=== PATIENT | female | born 1965 | race Caucasian/White ===

== ENCOUNTER 2017-04-12 12:16 | Inpatient (IN) | payer MEDICARE ==
[2017-04-12] VITALS (29 sets, daily range): BP systolic 87–162; BP diastolic 43–113
[~2017-04-12] VITALS: Ht 167.6 cm; Wt 87.3 kg
--- NOTE | 2017-04-12 12:30 | NUR ---
ARRIVAL PATIENT ARRIVED TO ED1 VIA GURNEY BY [facility],C/O OF COUGH AND BLOOD IN SPUTUM FOR THE PAST SEVERAL DAYS, WAS RECENTLY SEEN BY A DOCTOR IN ANOTHER STATE AND GIVEN BACTRIM FOR AN URI, TODAY PATIENT HAS NOTICED MORE BLOOD IN HER SPUTUM, CALLED EMS TO BRING TO ED FOR FURTHER EVAL BY EDP.
--- NOTE | 2017-04-12 13:11 | DIREP ---
PROCEDURE:CHEST 1 VIEW COMPARISON:None. INDICATIONS:Cough FINDINGS: LUNGS/PLEURA:Infiltrates are seen in both mid lung gomes and in both lung bases. The infiltrates in both mid lung gomes have a nodular or masslike appearance. VASCULATURE:Normal. Unremarkable pulmonary vasculature. CARDIAC:Normal. No cardiac silhouette abnormality or cardiomegaly. MEDIASTINUM:Normal. No visible mass or adenopathy. BONES:Normal. No fracture or visible bony lesion. OTHER:Negative. CONCLUSION:There are bilateral infiltrates in both mid lung gomes in both lung bases most consistent with bilateral pneumonia. However, the infiltrates in both mid lung gomes have a nodular or masslike appearance and recommend follow-up study to exclude possible pulmonary masses or malignancy. Dictated by: Miguel Rosen M.D. on 04/12/2017 at 01:11 PM
[2017-04-12 13:12] LABS: BASOPHIL % 0.4 % (0.0-0.2); LYMPHOCYTES # 0.3 10^3/uL (1.0-4.8); LYMPHOCYTES % 11.5 % (24.0-44.0); MEAN CELL HGB 29.1 pg (26-34); MEAN CELL HGB CONCENTRATION 32.3 g/dL (33-37); MEAN CORP VOLUME 89.9 fL (78-100); MEAN PLATELET VOLUME 11.5 fL (7.8-11.0); MONOCYTES # 0.1 10^3/uL (0.3-0.8); MONOCYTES % 3.6 % (5.0-12.0); NEUTROPHIL # 2.1 10^3/uL (1.8-7.7); NEUTROPHILS % 83.7 % (41.0-85.0); RED CELL DISTRIBUTION WIDTH 14.6 % (11.5-14.5); WHITE BLOOD CELL 2.5 10^3/uL (4.5-11.0)
[2017-04-12 13:12] LABS: ABG PH 7.495 (7.350-7.450); BE(B) 0.9 mmol/L (-2.0-2.0); HCO3act 23.4 mmol/L (22.0-26.0); pO2 35.1 mmHg (75.0-100.0)
[2017-04-12] MEDS ORDERED: NS 1000ML 1,000 ML IV STA ×2 (13:20→15:12)
[2017-04-12] MEDS ORDERED: LEVAQUIN 150 ML IV STA (13:20)
--- NOTE | 2017-04-12 13:20 | ER.PDOC ---
General Chief Complaint: Dyspnea/Respdistress Stated Complaint: COUGHING UP BLOOD Time seen by MD: 13:14 Source: patient Exam Limitations: no limitations History of Present Illness Initial Comments Coughing blood for 1 week Timing/Duration: gradual Severity: moderate Associated Symptoms: cough, mild SOB Allergies: Coded Allergies: Penicillins (Verified Allergy, Intermediate, 04/02/13) Home Meds Reported Medications Amphet Asp/Amphet/D-Amphet (ADDERALL XR 30 MG CAPSULE) 30 Mg Cap.er.24h, 1 CAP PO DAILY, #30 CAP 04/12/17 Sertraline Hcl (ZOLOFT) 100 Mg Tablet, 1 TAB PO DAILY, #30 TAB 2 Refills 04/12/17 Constitutional: no symptoms reported EENTM: no symptoms reported Respiratory: see HPI Cardiovascular: no symptoms reported Gastrointestinal: no symptoms reported All Other Systems: Reviewed and Negative Past Medical History Medical History: no pertinent history Surgical History: back, cholecystectomy, LMP (females 10-50): 04/08/17 Social History Smoking: cigarettes, greater than 1 pack/day Alcohol Use: none Drug Use: none Physical Exam General Appearance: alert, no distress Nose: nose nml Neck: nml inspection, supple Respiratory: no resp.distress, rales Abdomen: non-tender, no organomegaly CVS: reg rate & rhythm, heart sounds nml Skin: color nml, no rash, warm/dry Extremities: non-tender, nml ROM, no pedal edema NEURO/PSYCH: oriented x 3, CN's nml as tested, motor nml, sensation nml, mood/ affect nml Results/Orders Results/Orders Laboratory Tests Test 04/12/17 12:29 04/12/17 12:46 Blood Gas Sample Site LEFT BRACHIAL ARTRY Blood Gas pH 7.495 (7.350-7.450) Blood Gas PCO2 31.0 mmHg (35.0-45.0) Blood Gas PO2 35.1 mmHg (75.0-100.0) Blood Gas HCO3 23.4 mmol/L (22.0-26.0) Blood Gas Base Excess 0.9 mmol/L (-2.0-2.0) Keith Test N/A Arterial Blood Oxygen Saturation 70.7 % (95-) Deoxyhemoglobin 28.8 % (0.2-0.6) Carboxyhemoglobin 1.1 % (0.5-1.5) Methemoglobin 0.5 % (0.2-0.6) Total Hemoglobin 13.5 % (13.5-17.5) Total Oxygen Concentration 13.2 % (13.5-17.5) Lactic Acid (Blood Gas) 1.5 MMOL/L (0.5-1.0) FiO2 21 % (20-101) Bicarbonate 24.3 mmol/L (23-27) White Blood Count 2.5 10^3/uL (4.5-11.0) Red Blood Count 4.47 10^6/uL (4.00-5.20) Hemoglobin 13.0 g/dL (12.0-15.0) Hematocrit 40.2 % (36.0-46.0) Mean Corpuscular Volume 89.9 fL (78-100) Mean Corpuscular Hemoglobin 29.1 pg (26-34) Mean Corpuscular Hemoglobin Concent 32.3 g/dL (33-37) Red Cell Distribution Width 14.6 % (11.5-14.5) Platelet Count 96 10^3/uL (150-400) Mean Platelet Volume 11.5 fL (7.8-11.0) Neutrophils (%) (Auto) 83.7 % (41.0-85.0) Lymphocytes (%) (Auto) 11.5 % (24.0-44.0) Monocytes (%) (Auto) 3.6 % (5.0-12.0) Neutrophils # (Auto) 2.1 10^3/uL (1.8-7.7) Lymphocytes # (Auto) 0.3 10^3/uL (1.0-4.8) Monocytes # (Auto) 0.1 10^3/uL (0.3-0.8) Absolute Immature Granulocyte (auto 0.02 10^3 u/L (0-2) Eosinophils % 0.0 % (0.0-5.0) Basophils % 0.4 % (0.0-0.2) Basophils # 0.0 10^3/uL (0.0-0.1) Eosinophil Count 0.0 10^3/uL (0.0-0.2) Prothrombin Time 10.4 SEC (9.8-11.9) Prothrombin Time INR (Non-Therap) 1.0 Activated Partial Thromboplast Time 42.1 SEC (24.67-30.72) D-Dimer 0.69 mg/L (0.19-0.49) Sodium Level 138 mmol/L (132-145) Potassium Level 3.4 mmol/L (3.6-5.2) Chloride Level 101.0 mmol/L (96-109) Carbon Dioxide Level 25.6 mmol/L (20.0-32) Anion Gap 14.8 Blood Urea Nitrogen 13 mg/dL (7-18) Creatinine 1.14 mg/dL (0.59-1.40) Estimated GFR () 61.0 (>/=60) BUN/Creatinine Ratio 11.0 Glucose Level 126 mg/dL (70-110) Calcium Level 7.9 mg/dL (8.4-10.5) Total Bilirubin 0.3 mg/dL (0.2-1.0) Aspartate Amino Transf (AST/SGOT) 63 U/L (0-35) Alanine Aminotransferase (ALT/SGPT) 27 U/L (12-78) Alkaline Phosphatase 79 U/L (50-136) Total Creatine Kinase 268 U/L (26-192) Creatine Kinase MB 1.1 ng/mL (0.5-3.6) Troponin I < 0.02 ng/mL (0.00-0.05) Pro-B-Type Natriuretic Peptide 236 pg/mL (0-125) Total Protein 6.4 g/dL (6.4-8.2) Albumin 2.9 g/dL (3.4-5.0) Globulin 3.5 Percent Immature Gran (Cell Imm) 0.80 % (0.00-0.50) Administered Medications Medications (Trade) Dose Ordered Sig/Katie Route PRN Reason Start Time Stop Time Status Last Admin Dose Admin Sodium Chloride 1,000 ml @ 1,200 mls/hr Q50M STAT IV 04/12/17 13:20 04/12/17 14:09 DC 04/12/17 13:27 Levofloxacin/ Dextrose 150 ml @ 100 mls/hr STAT STAT IV 04/12/17 13:20 04/12/17 14:49 DC 04/12/17 13:59 Ondansetron HCl (Zofran) 4 mg STAT STAT IV 04/12/17 14:36 12/28/17 14:37 DC 04/12/17 14:37 EKG/XRAY/CT/US XRAY: chest (Bilateral Pneumonia) CT Comments: Pneumonia on CT chest, See full report Departure Time of Disposition: 15:03 Disposition: 09 ADMITTED INPATIENT Impression: Primary Impression: Acute respiratory failure Qualified Codes: J96.01 - Acute respiratory failure with hypoxia Additional Impressions: Sepsis Qualified Codes: A41.9 - Sepsis, unspecified organism Pneumonia Qualified Codes: J18.9 - Pneumonia, unspecified organism Condition: Critical Referrals: ELIZABETH AC MD (PCP) PRIMARY CARE PROVIDER Comments Admitted to Dr. Kitchen Duration or Time Spent with Pa: 60 mins Critical Care Note Total Time (mins): 60 RAISA ROTH MD Apr 12, 2017 13:20
[2017-04-12] MEDS ORDERED: NS 1000ML 1,000 ML ONE ×2 (13:22→15:09)
--- NOTE | 2017-04-12 13:23 | PCM.EKG ---
[facility] Test Date: 2017-04-12 Test Time: 13:22:32 Pat Name: DORINDA PEREZ Department: [id number] Room: ICU2 Gender: F Insurance Policy Issue Clerk: JESUS : 1965 Requested By: RAISA ROTH Order Number: [id number] Reading MD: Raisa ROTH Measurements Intervals [place] Rate: 85 P: 59 VT: 106 QRS: 46 QRSD: 62 T: 23 QT: 386 QTc: 459 Interpretive Statements Sinus rhythm with short VT Low voltage QRS Borderline ECG No previous ECG available for comparison Electronically Signed On 04-14-2017 7:57:07 CONTINUITY DIRECTOR by Raisa ROTH Please click the below link to view image of tracing.
[2017-04-12] MEDS ORDERED: LEVAQUIN 150 ML IV ONE (13:27)
[2017-04-12 13:28] LABS: ALANINE AMINOTRANSFERASE(ML) 27 U/L (12-78); ALKALINE PHOSPHATASE 79 U/L (50-136); ASPARTATE AMINO TRANSFERASE 63 U/L (0-35); CALCIUM 7.9 mg/dL (8.4-10.5); CARBON DIOXIDE 25.6 mmol/L (20.0-32); GLUCOSE 126 mg/dL (70-110)
[2017-04-12] MEDS ORDERED: SERT100T PO (13:28)
[2017-04-12] MEDS ORDERED: AMPH30CA6 PO (13:28)
--- NOTE | 2017-04-12 13:30 | NUR ---
SPUTUM PATIENT COUGHED BLOOD TINGED SPUTUM, DOCTOR GONZALEZ NOTIFIED. AWAITING TO GO TO CAT SCAN.
--- NOTE | 2017-04-12 13:41 | NUR ---
CAT SCAN PATIENT TO CAT SCAN WITH ALY FROM RADIOLOGY.
--- NOTE | 2017-04-12 13:42 | NUR ---
LAB CALLED LAB SPOKE WITH SHAE, LAB DID OBTAIN BLOOD CULTURES X2. DOCTOR GONZALEZ NOTIFIED.
--- NOTE | 2017-04-12 13:48 | NUR ---
CT PT BACK FROM CT
--- NOTE | 2017-04-12 14:13 | DIREP ---
PROCEDURE:CT CHEST WITH CONTRAST COMPARISON:CT, CT-ABDOMEN / PELVIS W CONTRAST, 04/02/2013, 02:53 AM. INDICATIONS:Cough productive of bloody sputum TECHNIQUE:Helical sections through the chest were performed from the lung apices through the diaphragms with IV contrast. Sagittal and coronal reconstructions are obtained from source images. FINDINGS: LUNGS:Diffuse airspace/ground-glass infiltrates are present scattered in both lungs. These are slightly more predominant in the lung bases. PLEURA:Normal. No mass or effusion. CARDIAC:Normal. No enlargement, pericardial thickening, or significant calcification. MEDIASTINUM:There are prominent mediastinal lymph nodes in both hilar regions and in the sub-carinal recess as well as about the arch. NAVEED:Normal. No mass or adenopathy. AORTA:Normal. No aneurysm. CHEST WALL:Normal. No mass or axillary adenopathy. LIMITED ABDOMEN:Normal. Limited images of the upper abdomen are unremarkable. BONES:Normal. No bony lesion or fracture. OTHER:Negative. CONCLUSION:Multifocal mixed airspace/ground-glass infiltrates worrisome for pneumonia. No evidence of pleural effusion. The prominent mediastinal lymph nodes may be reactive in nature. Follow-up CT imaging after appropriate therapy is recommended to document resolution Dictated by: Ashley Kelsey M.D. on 04/12/2017 at 01:54 PM
[2017-04-12] MEDS ORDERED: ZOFRAN ONE (14:31)
[2017-04-12] MEDS ORDERED: ZOFRAN IV STA (14:36)
--- NOTE | 2017-04-12 14:40 | NUR ---
DR ALBERT MOON MBA ON PHONE WITH DR PRICE
--- NOTE | 2017-04-12 15:06 | PRM.ACF1 ---
Date and Time Date and Time Time: 15:05 Admission Criteria Forms RESPIRATORY FAILURE GRG ( Place 'X' for any and all applicable criteria): Hospital admission is needed for appropriate care of the patient because of acute respiratory failure or insufficiency as indicated by 1 or more of the following (1)(2)(3)(4)(5)(6)(7)(8 ): [ ]I. Mechanical ventilation needed (acute invasive or noninvasive) [ ]II. Severe ventilation deficit as indicated by 1 or more of the following ( 9) [ ]a) Uncompensated Respiratory acidosis (pH < 7.35 and PaCO2 > 40 mmHg (5.3 kPa)) [ ]b) Airflow measurements < 25% of predicted (eg, PEFR < 100 L/min) [ ]c) FVC < 15 mL/kg of ideal body weight, or 50% decrease in vital capacity from baseline [ ]III. Noncardiac pulmonary edema not resolving with rapid emergency treatment (8) [x ]IV. Severe respiratory distress as indicated by 1 or more of the following: [ ]a) Severe tachypnea (respiratory rate greater than 30, greater than 45 for 6-month-old, greater than 60 for ) [ ]b) Severe hypoxemia (partial pressure of oxygen less than 50 mm Hg ( 6.7 kPa) on greater than 50% oxygen or partial pressure of oxygen to FIO2 ratio less than 200) [ ]c) Mental status deterioration from respiratory disease [ ]V. Airway obstruction or inadequate protection [A](10)(11) The original [employer] content created by [employer] has been revised. The portions of the content which have been revised are identified through the use of italic text, and [employer] has neither reviewed nor approved the modified material. All other unmodified content is copyright [employer]. Please see references footnoted in the original [employer] edition 2014 RAISA ROTH MD Apr 12, 2017 15:06
[2017-04-12] MEDS ORDERED: LANOLIN HYDROUS TP ONE (15:47)
--- NOTE | 2017-04-12 15:50 | NUR ---
GARCIA 16FR GARCIA CATH INSERTED USING STERILE TECHNIQUE. PATIENT TOLERATED WELL. GARCIA CATH TO GRAVITY. CLEAR YELLOW URINE NOTED. JAROD CARE DONE. GARCIA SECURED TO LEFT LEG WITH STATLOCK. PATIENT ON MENSES, PATIENT ASSISTED TO APPLY JAROD PAD. PATIENT LEFT LAYING IN BED WITH HOB ELEVATED 45 DEGREE. PATIENT ORIENTED TO BED, ROOM, AND CALL LIGHT.
[2017-04-12] MEDS ORDERED: ZOFRAN IV PRN (16:00)
[2017-04-12] MEDS ORDERED: VENTOLIN IH PRN (16:00)
[2017-04-12] MEDS ORDERED: TYLENOL ONE (16:11)
--- NOTE | 2017-04-12 16:40 | NUR ---
3RD NS BOLUS STARTED PER DR. PRICE'S VERBAL ORDER.
--- NOTE | 2017-04-12 16:45 | NUR ---
DR. PRICE AT BEDSIDE ASSESSING PATIENT AND DISCUSSING PLAN OF CARE.
[2017-04-12] MEDS: TYLENOL PO PRN ×2 (16:48→19:31)
[2017-04-12] MEDS: ROBITUSSIN AC PO PRN ×3 (16:49→23:55)
[2017-04-12] MEDS ORDERED: LEVAQUIN 150 ML IV SCH (17:00)
[2017-04-12 17:16] LABS: BILIRUBIN,URINE NEGATIVE (NEGATIVE); UROBILINOGEN,URINE NORMAL (NEGATIVE)
[2017-04-12 17:18] LABS: ANISOCYTOSIS 1+ (NEGATIVE); LYMPHOCYTE 12 % (25-36); MONOCYTE 5 % (3-9); OTHER CELL TYPE 1; SEGMENTED NEUTROPHILS 82 % (31-76)
[2017-04-12] MEDS: NS 1000ML 1,000 ML IV SCH (17:19)
[2017-04-12 17:23] LABS: APPEARANCE,URINE SLIGHTLY HAZY (CLEAR); UA COLOR YELLOW (YELLOW)
--- NOTE | 2017-04-12 17:50 | NUR ---
RT O2 SAT 85% TO 88%. PATIENT SWITCHED TO HICON MASK.
[2017-04-12] MEDS ORDERED: DUONEB 0.5 MG-3 MG/3 ML SOLN IH SCH (18:00)
--- NOTE | 2017-04-12 19:00 | NUR ---
RECEIVED PATIENT ON RESPIRATORY DISTRESS RR 44 BREATHS/MIN, 82% SPO2 ON HIGH CON MASK. INSTRUCTED PT TO DO DEEP BREATHING AND COUGHING EXERCISES. INCREASED HOB TO 50 DEGREES. CHEST PHYSIOTHERAPY DONE- BACK RUB, CLAPPING AND VIBRATION. SPO2 INCREASED BET TO 88-91%, RR DECREASED TO 28-34 BREATHS/MIN. HEART RATE REMAINED BET. 83-84 BPM. ASSUMED CARE. SEE ASSESSMENT.
[2017-04-12] MEDS: TAMIFLU PO SCH (19:31)
[2017-04-12] MEDS: XANAX PO PRN (19:31)
[2017-04-12] MEDS: DUONEB 0.5 MG-3 MG/3 ML SOLN IH SCH (20:11)
[2017-04-12] MEDS ORDERED: MORPHINE SULFATE ONE (20:42)
[2017-04-12] MEDS: MORPHINE SULFATE IV PRN (20:45)
--- NOTE | 2017-04-12 21:01 | NUR ---
NOTIFIED RESULTS FOR FLU A & B TO DR PRICE.
--- NOTE | 2017-04-12 23:26 | NUR ---
PT PLACED ON BIPAP RT AT BEDSIDE. PLACED PT ON BIPAP. SPO2 INCREASED TO 93-94% FROM LOW 70s. USE OF ACCESSORY MUSCLES, NASAL FLARING NOTED. RR 41-44 BREATHS/MIN Addendum: 04/13/17 at 0022 by Kat Ervin RN CORRECT TIME STAMP: [id number]
--- NOTE | 2017-04-12 23:26 | NUR ---
SPO2 79-81% NOTIFIED DR PRICE. RECEIVED ORDER TO PUT PATIENT ON BIPAP THEN A STAT ABG. RELAYED TO LEX GARCIA
--- NOTE | 2017-04-12 23:44 | NUR ---
MODERATE ANXIETY PT HYPERVENTILATING, VERBALIZED BEING SCARED. RR 40s, SPO2 78-81 ON COMFORT FLOW. RT AT BEDSIDE, PREPARING PATIENT ON BIPAP. NOTIFIED DR PRICE. RECEIVED ORDER FOR ATIVAN 1 MG Q6 PRN FOR ANXIETY. RBVO
[2017-04-12] MEDS: ATIVAN IV PRN (23:56)
[2017-04-13] VITALS (51 sets, daily range): BP systolic 89–198; BP diastolic 46–114
--- NOTE | 2017-04-13 00:15 | NUR ---
ABG RESULT RELAYED TO DR PRICE PH 7.38 CO2 35.4 PO2 61.5 HCO3 20.6 LACTIC 1.2 BIPAP SETTING 27/10, 85%
[2017-04-13 00:56] LABS: ABG PCO2 35.4 mmHg (35.0-45.0); ABG PH 7.383 (7.350-7.450); BE(B) -3.8 mmol/L (-2.0-2.0); HCO3act 20.6 mmol/L (22.0-26.0); pO2 61.5 mmHg (75.0-100.0)
[2017-04-13] MEDS: NS 1000ML 1,000 ML IV SCH (02:13)
[2017-04-13] MEDS: DUONEB 0.5 MG-3 MG/3 ML SOLN IH SCH ×3 (03:00→15:42)
--- NOTE | 2017-04-13 03:00 | NUR ---
PT REPEATEDLY REMOVES BIPAP MASK INSTRUCTED PT TO CONSERVE ENERGY, KEEP BIPAP MASK ON AT ALL TIMES. REITERATION PROVIDED. SPO2 FLUCTUATES BET. 80s- 93%
--- NOTE | 2017-04-13 03:00 | NUR ---
ANXIETY SEVERE ANXIETY NOTED. HR INCREASED TO 105 BPM, RR 55, SHALLOW LABORED BREATHING. PT STATED I AM VERY ANXIOUS RIGHT NOW. ANXIETY NOTED AFTER BOUTS OF COUGH WITH COPIOUS AMOUNT OF PINK TINGED SPUTUM. ENCOURAGED PT TO CALM, DO SLOW DEEP BREATHING. SEE EMAR. AFTER DOSE OF ATIVAN, PT IMMEDIATELY WENT CALM, HR WENT LAURA TO 90s, RR ON LOW 50s. CLOSELY MONITORED
[2017-04-13] MEDS: ATIVAN IV PRN ×3 (03:03→11:35)
--- NOTE | 2017-04-13 03:54 | NUR ---
NAUSEA PT COMPLAINED OF NAUSEA AND DRY MOUTH. ICE CHIPS PROVIDED. SEE EMAR.
[2017-04-13] MEDS ORDERED: MORPHINE SULFATE ONE (04:00)
[2017-04-13] MEDS: MORPHINE SULFATE IV PRN (04:07)
[2017-04-13] MEDS: TYLENOL PO PRN ×2 (04:19→11:38)
[2017-04-13 05:42] LABS: BASOPHIL % 0.7 % (0.0-0.2); HEMOGLOBIN 11.1 g/dL (12.0-15.0); LYMPHOCYTES # 0.5 10^3/uL (1.0-4.8); LYMPHOCYTES % 16.8 % (24.0-44.0); MEAN CELL HGB 28.6 pg (26-34); MEAN CELL HGB CONCENTRATION 31.4 g/dL (33-37); MONOCYTES # 0.1 10^3/uL (0.3-0.8); MONOCYTES % 3.7 % (5.0-12.0); NEUTROPHIL # 2.3 10^3/uL (1.8-7.7); NEUTROPHILS % 78.5 % (41.0-85.0); RED CELL DISTRIBUTION WIDTH 14.9 % (11.5-14.5)
[2017-04-13 05:54] LABS: CALCIUM 6.6 mg/dL (8.4-10.5); CARBON DIOXIDE 22.7 mmol/L (20.0-32)
--- NOTE | 2017-04-13 06:10 | NUR ---
STILL FEBRILE COOLING MEASURES PROVIDED. REMOVED EXTRA BLANKETS FROM PATIENT. RESPIRATION STILL LABORED, RANGING BET. 46-51 BREATHS/MIN, SPO2 DROPS BET. 86-87% WHILE ON DEEP SLEEP. CHEST PHYSIOTHERAPY RENDERED. REITERATION OF DEEP BREATHING, RELAXATION AND TO NOT ALWAYS REMOVE BIPAP FREQUENTLY TO MAXIMIZE O2 THERAPY AND CONSERVE ENERGY DONE.
--- NOTE | 2017-04-13 07:30 | NUR ---
PATIENT AXILLARY TEMPERATURE AT 99.8 F. TYLENOL WAS GIVEN EARLY THIS MORNING AT 4 AM. COOL BATH GIVEN PATIENT VERBALIZES RELIEF AND COMFORT. WILL CONTINUE TO MONITOR PATIENT.
[2017-04-13] MEDS: XANAX PO PRN (08:45)
[2017-04-13] MEDS: TAMIFLU PO SCH (08:45)
[2017-04-13] MEDS ORDERED: MORPHINE SULFATE IV PRN (08:55)
[2017-04-13] MEDS ORDERED: DILAUDID IV PRN (12:00)
[2017-04-13] MEDS ORDERED: NS 1000ML 1,000 ML IV ONE (12:00)
[2017-04-13] MEDS ORDERED: LIDOCAINE 1% VIAL ONE (12:15)
[2017-04-13] MEDS ORDERED: DOPAMINE 400 MG/D5W 250 ML 250 ML IV ONE (12:17)
[2017-04-13] MEDS ORDERED: VERSED ONE (12:26)
[2017-04-13] MEDS ORDERED: VERSED IV PRN (12:30)
[2017-04-13] MEDS ORDERED: DIPRIVAN 100 ML IV ONE (13:09)
--- NOTE | 2017-04-13 13:10 | DIREP ---
PROCEDURE:CHEST 1 VIEW COMPARISON:[facility], CR, XRAY CHEST SINGLE VW, 04/12/2017, 12:50 PM. INDICATIONS:ET Placement FINDINGS: LUNGS/PLEURA:Worsening airspace disease throughout the bilateral hemithoraces. This is most prominent within the mid to inferior left hemithorax. Associated left pleural effusion is not excluded. VASCULATURE:Obscured by adjacent perihilar opacities. Suspect central pulmonary vascular congestion. CARDIAC:The heart does not appear significantly enlarged. MEDIASTINUM:Stable mediastinal contours. BONES:Degenerative changes of the spine. OTHER:Endotracheal tube terminates appropriately above the tom. Nasogastric tube courses distal to the diaphragm and out of the imaged field of view. CONCLUSION: 1. Worsening bilateral airspace disease. This appears more prominent within the perihilar regions when compared to the previous study which may reflect superimposed CHF/fluid overload with perihilar alveolar edema. Additional airspace disease within the lung bases is more suspicious for infiltrate. Left pleural effusion is not excluded. 2. Appropriately positioned endotracheal and nasogastric tubes. Dictated by: Mc Kitchen M.D. On 04/13/2017 at 01:00 PM
[2017-04-13 13:52] LABS: ABG PCO2 51.5 mmHg (35.0-45.0); ABG PH 7.239 (7.350-7.450); BE(B) -6.2 mmol/L (-2.0-2.0); HCO3act 21.5 mmol/L (22.0-26.0); pO2 43.1 mmHg (75.0-100.0)
[2017-04-13] MEDS ORDERED: VANCOMYCIN HCL IV ONE (14:30)
[2017-04-13] MEDS ORDERED: D5W IV ONE (14:30)
[2017-04-13] MEDS: DIPRIVAN IV SCH ×2 (14:42→14:46)
[2017-04-13] MEDS ORDERED: LOVENOX SQ ONE (15:00)
--- NOTE | 2017-04-13 15:05 | NUR ---
1500 H PATIENT OXYGEN SATURATION AT 70%. VANCOMYCIN 2GRAM STARTED. 80 MG OF LOVENOX GIVEN ORDERED BY DR. PRICE. STAT ECHO NEEDED. 1430 H PATIENT GIVEN A PARTIAL BATH HAD A LARGE WATERY STOOL. PATIENT OXYGEN SATURATION AT 70'S AT THIS TIME. DR. PRICE WILL TRANSFER PATIENT TO [facility] AWAITING FOR CALL BACK. PATIENT WILL WILL TRANSFERRED THRU AIR. 1330 H PATIENT OXYGEN SATURATION STAYS BELOW 70% PHYSICIANS DR. PRICE, DR. RIVAS AND DR. REA AT BEDSIDE. 1210 H PATIENT INTUBATED, PATIENT GIVEN 2 MG OF VERSED X 2 AND 20 MG OF RECUNORIUM 20 MG X 1. NGT OF LEFT NARE APPLIED BY DR. RIVAS AT BEDSIDE. CHEST X-RAY CONFIRMED PLACEMENT OF ETT AND NGT. PATIENT IS AT SIMV AT 1005 AT THIS TIME. 1145 H PATIENT'S TORIN GREEN NOTIFIED OVER THE PHONE ON PATIENT STATUS AND CURRENT PLAN OF CARE OF INTUBATION. AGREED ON PROCEDURE. [address] PRICE NOTIFIED ON PATIENT'S PROGRESSING ANXIETY AND CONSTANT DROP OF OXYGEN SATURATION. PATIENT IS AWAKE, ALERT BUT VERY ANXIOUS AND RESTLESS. DR. PRICE NOTIFIED THAT PATIENT GIVEN 1 MG OF ATIVAN X 2 AND 2 MG OF MORPHINE X1. PATIENT SEEMED TO CALM DOWN BUT PATIENT OXYGEN SATURATION CONTINIOUS TO DROP EVEN AT REST. PATIENT IS TACHYPNEIC AT 44-50'S WITH BI-PAP AT 85%. DR. PRICE DECIDED THAT PATIENT NEED TO BE INTUBATED. RT KELSEY AT BEDSIDE. EQUIPMENT AND OTHER MATERIALS WILL BE PREPARED FOR INTUBATION.
[2017-04-13] MEDS ORDERED: ZEMURON IV ONE (16:02)
--- NOTE | 2017-04-13 16:05 | NUR ---
1650 H REPORT GIVEN TO THE NURSE FROM [facility] OVER THE PHONE. 1630 H PATIENT WITH THE [facility] LEFT THE UNIT. 1530 H [facility] IN THE UNIT TO TRANSPORT PATIENT TO [facility].
--- NOTE | 2017-04-13 20:16 | HPH ---
ADMIT DATE: 04/12/2017 The patient was seen upon arrival to the Intensive Care Unit. CHIEF COMPLAINT: Dyspnea, coughing up blood. HISTORY OF PRESENT ILLNESS: The patient is a 51-year-old woman with a past medical history significant for ADHD and depression, who presented to the ER with complaints of coughing up blood for 1 week. She states she had seen a Hospital ER in [place], [place] and they saw that there was nothing wrong, sent home. Over the last week, she gradually became more progressively short of breath. She complained of about few days ago having a fever, sore throat and body aches. She has no known sick contacts, but does have some recent travel from [facility]. She did have significant dyspnea, was placed on high flow oxygen in the ER. Due to risk factors, she was started on Tamiflu and broad spectrum IV antibiotics. She does not have a history of any pulmonary, cardiac problems per the patient's report. She does smoke daily. PAST MEDICAL HISTORY: Includes ADHD, depression, tobacco abuse. PAST SURGICAL HISTORY: She has had back surgery, cholecystectomy, . ALLERGIES: ALLERGIC TO PENICILLIN. HOME MEDICATIONS: List includes Adderall 30 mg daily, Zoloft 100 mg daily. SOCIAL HISTORY: She lives at home. No alcohol or illicit drug use. She has positive 1 pack per day tobacco use. FAMILY HISTORY: Negative for early coronary artery disease and diabetes. REVIEW OF SYSTEMS: CARDIAC: Denies chest pain. Positive shortness of breath and dyspnea on exertion. PULMONARY: Positive for occasional cough, some sore throat. No pleuritic chest pain. GASTROINTESTINAL: No nausea, vomiting, diarrhea or constipation. All else negative in 10 point review of system except as in HPI. PHYSICAL EXAMINATION: VITAL SIGNS: Upon arrival to the ER, height 167.6 cm, weight 87.3 kilograms. Temperature 98.7, pulse 93, respiratory rate is 20, blood pressure 113/7/63 and O2 saturations were initially 76% on room air. GENERAL: She is alert, anxious, in no acute distress at time of exam. HEENT: Pupils equal, round, reactive to light. Sclerae are anicteric. Oropharynx is clear. Mucous membranes are moist. NECK: Supple, no lymphadenopathy. CARDIOVASCULAR: At time of exam was regular rate and rhythm. LUNGS: Some mild coarse breath sounds bilaterally. No wheezing. Positive tachypnea. ABDOMEN: Soft. Bowel sounds are present, nontender to palpation. EXTREMITIES: No cyanosis, clubbing or significant edema. NEUROLOGIC: Grossly nonfocal. INITIAL LABORATORY DATA: CBC: White count 2.5, hemoglobin 13.0 and platelets 96. Differential: 84% neutrophils, 11% lymphocytes, 4% monocytes. Sodium 138, potassium 3.4, chloride 101, CO2 is 25, BUN 13, creatinine 1.1, glucose 126, calcium 7.9, total bilirubin 0.3, AST 63, ALT is 27, alkaline phosphatase 79, total CK is 268, CK-MB is 1.1, troponin I is less than 0.02, proBNP 236, total protein 6.4, albumin 2.9. Initial blood gas, pH is 7.49, pCO2 of 31, pO2 is 35, base excess is 0.9. Lactate of 1.5. IMAGING STUDIES: Chest x-ray performed in the Emergency Room revealed bilateral infiltrates in mid lung gomes. CT of the chest was performed, which reveals multifocal airspace ground glass infiltrates, no evidence of effusion, reactive lymph nodes. ASSESSMENT AND PLAN: The patient is a 51-year-old woman here with an atypical pneumonia with possible influenza A with acute hypoxic respiratory failure, tobacco abuse, ADHD and depression. 1. From pulmonary point of view, we can titrate oxygen as needed to maintain oxygen saturations. We will start on IV Levaquin for broad spectrum coverage and due to risk factors, we will start on Tamiflu b.i.d. 2. Nebulizer treatments scheduled and as needed. 3. Appropriate p.r.n. pain and nausea medications. 4. We will hold her Adderall for tonight, benzodiazepines as needed for anxiety. Time spent with the patient on 04/12/2017 is 45 minutes. This plan was discussed with the patient. She is her own decision maker. He does understand and concur with plans. Celio Kitchen MD DR: UDAY/joie JOB# [id number]
--- NOTE | 2017-04-14 03:30 | DSH ---
DATE OF DISCHARGE: 04/13/2017 DISPOSITION: Discharged to [facility] under the care of Dr. Lawler for a higher level of care with Pulmonary Critical Care. PRINCIPAL DIAGNOSES: 1. Acute hypoxic respiratory failure. 2. Multilobar pneumonia. 3. Tobacco abuse. BRIEF SUMMARY: The patient was initially admitted on April 04, 2017 with respiratory distress. She was monitored in the Intensive Care Unit. Overnight, she required increasing respiratory support and was placed on BiPAP, which she did very well with. Early this morning, she continued to do okay with the BiPAP, but was very tachypneic. There was some significant concern about her crying out and her respiratory rate decreased and was not able to maintain saturations. She has had some frothy secretions. Her was contacted and he did consent to an intubation. She was urgently, but not emergently intubated. An ET tube was advanced and an NG tube was also placed. She had significant secretions via the ET tube, which were suctioned out. Post intubation, she continued to have a difficult time maintaining oxygen saturations. She was placed on an IMV of 16 with a tidal volume of 550, pressure support 10, and FiO2 of 100%. The PEEP had to be titrated up to about 10% to maintain saturations in the 70s. She started having some coughing episodes, at which time her sats dropped and it took a while to come back up. She did maintain her blood pressure the whole time. She had been placed on propofol for sedation and it had to be titrated to the maximum dose to keep her somewhat calm, and her blood pressure did initially tolerate this. Due to high respiratory support and concerns for needing a higher level of care with Pulmonology, she was transferred to [facility]. Time spent on this progress note and discharge summary today was 60 minutes of critical care time. Celio Kitchen MD DR: UDAY/joie JOB# [id number]
--- NOTE | 2017-04-17 14:54 | ECHO ---
DATE OF SERVICE: 04/13/2017 INDICATIONS: A 51-year-old lady with respiratory failure on the ventilator, elected for an echocardiographic study for further evaluation of cardiac function, systolic and diastolic parameters and any other structural or functional heart disease. FINDINGS: 1. Study quality was unfortunately poor. The patient was on PEEP on a ventilator. Acoustic windows were very limited. 2. The readable portion of the exam showed the following. A. The rhythm is sinus rhythm. B. Overall, EF of 60%. LV dimensions were normal. No visible wall motion abnormality. No significant LVH. C. RV size and EF were normal. D. Atrial size was normal. E. Mitral valve was the only valve visualized. No significant regurgitation or stenosis. The valve gradient was 2.5 mmHg. F. No visible pericardial effusion. G. Aortic valve was suboptimally visualized. H. Tricuspid valve was suboptimally visualized, cannot calculate PA pressure. IMPRESSION: 1. Suboptimal study. The patient was on vent with a PEEP. 2. Overall, EF is 60%. No wall motion abnormality. No LVH, normal LV dimension and size. 3. Normal RV size and EF. 4. No significant major valvular dysfunction. 5. Mitral valve was normal. No regurgitation or stenosis with normal gradient. 6. Aortic valve was suboptimally visualized. 7. No pericardial effusion. 8. The rhythm was sinus rhythm. Yunier Pires MD DR: SIMONA/joie JOB# [id number]
== END 2017-04-13 16:03 | disposition short-term general hospital (02) | DRG 208 ==
LOC: EDBD 12:16 → ER 12:16 → ICU 14:43
PROVIDERS: ADMIT Internal Medicine; ATTEND Internal Medicine
PROC: 5A09357 Assistance with Respiratory Ventilation, Less than 24 Consecutive Hours, Continuous Positive Airway Pressure (ICD-10-PCS; principal; 2017-04-13)
PROC: 5A1935Z Respiratory Ventilation, Less than 24 Consecutive Hours (ICD-10-PCS; 2017-04-13)
PROC: 0BH17EZ Insertion of Endotracheal Airway into Trachea, Via Natural or Artificial Opening (ICD-10-PCS; 2017-04-13)
DX: J96.01 Acute respiratory failure with hypoxia (principal); J18.9 Pneumonia, unspecified organism; F32.9 Major depressive disorder, single episode, unspecified; F17.210 Nicotine dependence, cigarettes, uncomplicated; F90.9 Attention-deficit hyperactivity disorder, unspecified type; Z90.49 Acquired absence of other specified parts of digestive tract; Z88.0 Allergy status to penicillin; Z79.899 Other long term (current) drug therapy
CPT/HCPCS: 36415; 71010; 71260; 80048; 80053; 81000; 82550; 82553; 82803; 83880; 84484; 85025; 85379; 85610; 85730; 86710; 87040; 87070; 87086; 87205; 93005; 93307; 94002; 94640; 94660; 96361; 96365; 96375; 99291; J0745; J1170; J1650; J1956; J2001; J2060; J2250; J2270; J2405; J3490; J7030; J7060; J7620; Q9967; 71045; G9019

== ENCOUNTER 2018-11-19 16:38 | Emergency (ER) | payer MEDICARE ==
[~2018-11-19] VITALS: Ht 170.2 cm; Wt 104.3 kg
[~2018-11-19 16:38] MED LIST: AMPH30CA6 PO; SERT100T PO
[2018-11-19 16:59] VITALS: BP 152/91
--- NOTE | 2018-11-19 16:59 | NUR ---
ARRIVAL PATIENT ARRIVED TO [facility], C/O OF RIGHT RING FINGER LACERATION TODAY, PATIENT STATES SHE WAS CUTTING TOMATOES AND CUT HER FINGER, AREA CLEANED WITH STERILE WATER, NO BLEEDING NOTED.
[2018-11-19] MEDS ORDERED: ADACEL VIAL IM ONE (17:20)
--- NOTE | 2018-11-19 17:20 | ER.PDOC ---
General Chief Complaint: Extremities Stated Complaint: FINGER LACERATION Time seen by MD: 17:17 Source: patient Exam Limitations: no limitations History of Present Illness Initial Comments Laceration left 4th finger Occurred: just prior to arrival Where: home Severity: mild Context: laceration Allergies: Coded Allergies: Penicillins (Verified Allergy, Intermediate, 04/02/13) Home Meds Reported Medications Amphet Asp/Amphet/D-Amphet (ADDERALL XR 30 MG CAPSULE) 30 Mg Cap.er.24h, 1 CAP PO DAILY, #30 CAP 04/12/17 Sertraline Hcl (ZOLOFT) 100 Mg Tablet, 1 TAB PO DAILY, #30 TAB 2 Refills 04/12/17 Past Medical History Medical History: other Surgical History: back, cholecystectomy, , tubal, other Social History Smoking: non-smoker Alcohol Use: rarely Drug Use: none Review of Systems Constitutional: no symptoms reported EENTM: no symptoms reported Cardiovascular: no symptoms reported Gastrointestinal: no symptoms reported Musculoskeletal: see HPI All Other Systems: Reviewed and Negative Physical Exam General Appearance: Alert, No Apparent Distress Hand: see diagram Wrist: nml inspection, non-tender, nml ROM 1 - Left 4th finger Neuro: sensation nml, motor nml Vascular: no vascular compromise Tendons: tendon function nml Forearm/Elbow/Arm: uninjured above wrist Head/ENT: nml inspection, pharynx nml Neck/Back: nml inspection, non-tender Resp/CVS: no resp distress, lungs clear, heart sounds nml, reg. rate & rhythm Abdomen: non-tender, no organomegaly ED LACERATION WOUND REPAIR # of Wounds/Lacerations Presen: 1 Wound Location & Length (Requi: left 4th finger Wound Length (cm): 1 Wound cleaned: betadine Wound's Depth, Shape: superficial Wound Repaired With: dermabond Results/Orders Results/Orders Orders - RAISA ROTH MD Diphth,Pertuss(Acell),Tet Vac (Boostrix (11/19/18 17:30) Vital Signs Date Time Temp Pulse Resp B/P (MAP) Pulse Ox O2 Delivery O2 Flow Rate FiO2 11/19/18 16:59 98.1 92 18 152/91 (111) 95 Room Air 11/19/18 16:57 98.1 92 18 95 Room Air 11/19/18 16:56 98.1 92 18 Departure Time of Disposition: 17:19 Disposition: 01 HOME, SELF-CARE Impression: Primary Impression: Laceration of finger of left hand Condition: Stable Referrals: PCP,UNKNOWN (PCP) PRIMARY CARE PROVIDER Additional Instructions: Apply Neosporin daily F/U with your PCP Duration or Time Spent with Pa: 20 mins Problem Qualifiers Primary Impression: Laceration of finger of left hand Encounter type: initial encounter Finger: ring finger Damage to nail status: without damage Foreign body presence: without foreign body Qualified Codes: S61.215A - Laceration without foreign body of left ring finger without damage to nail, initial encounter RAISA ROTH MD Nov 19, 2018 17:20
[2018-11-19 17:27] VITALS: BP 152/91
[2018-11-19] MEDS ORDERED: BOOSTRIX TDAP IM ONE (17:30)
== END 2018-11-19 17:28 | disposition home or self-care (01) ==
LOC: ER 16:38
DX: S61.215A Laceration without foreign body of left ring finger without damage to nail, initial encounter (principal); Z79.899 Other long term (current) drug therapy; Z88.0 Allergy status to penicillin; Z90.49 Acquired absence of other specified parts of digestive tract; W26.0XXA Contact with knife, initial encounter; Y93.89 Activity, other specified; Y92.098 Other place in other non-institutional residence as the place of occurrence of the external cause; Y99.8 Other external cause status
CPT/HCPCS: 90471; 90715; 99283; 12001